=== PATIENT | female | born 1985 | race Asian ===

== ENCOUNTER 2017-02-26 17:03 | Emergency (ER) | payer OTHER ==
[2017-02-26 17:07] VITALS: TEMP 97.7
[2017-02-26 17:37] LABS: ADD DIFF? YES; ADD MORPH? NO; ADD SCAN? NO; ATYPICAL LYMPHOCYTE FLAG 20 (0-99); FRAGMENT RBC FLAG 0 (0-99); HEMATOCRIT 44.1 % (38.0-47.0); HEMOGLOBIN 15.1 g/dL (12.6-16.3); LEFT SHIFT FLG 30 (0-99); LIPEMIA HEMOLYSIS FLAG 90 (0-99); MEAN CELL HEMOGLOBIN 31.1 pg (27.9-34.1); MEAN CELL HEMOGLOBIN CONCENTR. 34.2 g/dL (32.4-36.7); MEAN CELL VOLUME 90.9 fL (81.5-99.8); MEAN PLATELET VOLUME 8.9 fL (8.7-11.7); PLATELET CLUMPS FLAG 30 (0-99); PLATELET COUNT 512 10^3/uL (150-400); RED BLOOD CELL COUNT 4.85 10^6/uL (4.18-5.33); RED CELL DISTRIBUTION WIDTH 12.4 % (11.5-15.2)
[2017-02-26] MEDS ORDERED: FAMOTIDINE 20 MG/NACL 50 ML IV ONE (17:41)
[2017-02-26] MEDS ORDERED: HYDROmorphONE/DILAUDID 1 MG/ML SYR IVP ONE ×2 (17:41→18:52)
[2017-02-26] MEDS ORDERED: NS 1,000 ML IV ONE ×2 (17:41)
[2017-02-26] MEDS ORDERED: ONDANSETRON 4 MG/2 ML VIAL IVP ONE ×2 (17:41→18:52)
--- NOTE | 2017-02-26 17:46 | EDPHY ---
H & P Time Seen by Provider: 02/26/17 17:25 HPI/ROS: HPI Vomiting blood. 31-year-old female by private vehicle with her mother. This patient has a recent history of mononucleosis. This was diagnosed a week and half ago. She reports that this morning she woke up feeling nauseous. She then had several episodes of nonbilious, nonbloody vomiting. Prior to arrival she states she was vomiting up brownish liquid with blood streaks in it. She also reports having watery diarrhea and reports having some blood in her diarrhea prior to arrival as well. No ill contacts. Denies any change in diet. She is not on any prescription medications. She does not take NSAIDs on a regular basis. No history of peptic ulcer disease. She describes having a crampy abdominal discomfort mid abdomen. ROS: Constitutional: No fever, no chills. No weakness. Eyes: No discharge. No changes in vision. ENT: No sore throat. No nasal congestion or rhinorrhea. Respiratory: No cough. No shortness of breath. Cardiac: No chest pain, no palpitations. Gastrointestinal: As above. Genitourinary: No hematuria. No dysuria or increased frequency with urination. As above. Musculoskeletal: No back pain. No neck pain. No myalgias or arthralgias. Skin: No rashes. Neurological: No headache. No focal weakness or altered sensation. Past medical history: As above. Otherwise she denies any significant past medical history. Social history: Here with her mother. Nonsmoker. No alcohol. Physical Exam: General Appearance: Alert, she appears uncomfortable. This patient is responding to questions appropriately and in full sentences. This patient appears well-hydrated and well-nourished. Eyes: Pupils equal and round no pallor or injection. No lid edema, erythema or injection. ENT, Mouth: Mucous membranes are moist. The pharyngeal tissues are unremarkable. No edema or swelling. No asymmetry suggestive of abscess. No erythema or exudates. Respiratory: There are no retractions, lungs are clear to auscultation with good air movement bilaterally. Cardiovascular: Regular rate and rhythm. No murmur. Gastrointestinal: Abdomen is soft with mild and vague mid abdominal tenderness on palpation, no masses, bowel sounds normal. No focal tenderness at McBurney' s point. No Jonas sign. Neurological: Motor sensory function is grossly intact. Cranial nerves are normal. Gait is normal. Skin: Warm and dry, no rashes. Musculoskeletal: Neck is supple and nontender. Extremities are symmetrical. All joints range without pain or impingement. Psychiatric: No agitation. No depression. Database: EKG: Imaging: Upright abdominal x-ray series: No free air. No obstructive pattern. Otherwise normal study. Interpreted by me. Procedures: Emergency department course: She vomited once in the emergency department. Was able to look at this. Blood- streaked vomits mixed with saliva brown material. No coffee grounds. IV was placed. She was placed on a monitor. She was started on IV normal saline with 2 L to be given over the next 1-2 hours. She was initially given 4 mg of IV Zofran, 0.5 mg of IV hydromorphone, 20 mg of IV Pepcid and 40 mg of IV Protonix. 6:50 p.m., patient re-evaluated. She states that she is feeling better at this time. She feels the urge to defecate. She will provide us with a stool sample. Stool studies have been ordered. She states that she still feels mildly nauseous and has a small amount of abdominal discomfort but overall feels much better. Repeat abdominal exam, she is soft, nontender nondistended. She was given an additional 0.25 mg of IV hydromorphone and another 4 mg of IV Zofran. Blood work reviewed. She is acidotic. Likely secondary to loss of bicarb from diarrhea. Metabolic panel will be repeated after her 2 L of IV normal saline. 8:45 p.m., patient re-evaluated. She has been taking oral fluids without issue. She has not had any further vomiting or diarrhea in the emergency department. Repeat abdominal exam she is soft, nontender nondistended. Results of her blood work discussed with her. Repeat basic metabolic panel shows resolving acidosis. Stool studies have been sent. She feels comfortable going home with her boyfriend and I feel she is safe for discharge. She will follow up with her primary care physician at [facility] in the next 1-2 days for re-evaluation. Return to emergency department precautions were thoroughly reviewed with her. All of her questions were answered. She was discharged in good condition. She will be prescribed Zofran for nausea. I also will send her home with a take-home pack of Vicodin for abdominal cramping and her diarrhea. Differential Diagnosis: The differential diagnosis on this patient includes but is not limited to Cathy Bernabe tear, E. coli [id number], food borne illness, gastroenteritis, peptic ulcer disease. This represents a partial list of diagnoses considered. These considerations are based on history, physical exam, past history, reassessment and diagnostic testing. Smoking Status: Never smoked Constitutional: Initial Vital Signs Temperature (C) 36.5 C 02/26/17 17:03 Heart Rate 95 02/26/17 17:03 Respiratory Rate 20 02/26/17 17:03 Blood Pressure 102/62 02/26/17 17:03 O2 Sat (%) 97 02/26/17 17:03 O2 Delivery Mode Room Air Allergies/Adverse Reactions: shellfish Allergy (Uncoded 02/26/17 17:07) Home Medications: Medication Instructions Recorded Norgestimate-Ethinyl Estradiol 1 each PO 02/26/17 [Sprintec] Ondansetron Odt [Zofran Odt 4 mg 4 mg PO Q4PRN PRN #10 tab 02/26/17 (*)] Steroid 02/26/17 Zpack 02/26/17 Medical Decision Making - Data Points Laboratory Results: Laboratory Results 02/26/17 17:25 02/26/17 19:50 Microbiology Results: MICROBIOLOGY 02/26/17 19:00 Stool Gastrointestinal Tract Panel (PCR) - Final Norovirus Gi/Gii Medications Given: Discontinued Medications Hydrocodone Bitart/Acetaminophen ([place] 5/325mg Prepack#6) 1 btl TAKEHOME EDNOW ONE Stop: 02/26/17 20:52 Last Admin: 02/26/17 21:02 Dose: 1 btl Hydromorphone HCl (Dilaudid) 0.5 mg IVP EDNOW ONE Stop: 02/26/17 17:42 Last Admin: 02/26/17 17:54 Dose: 0.5 mg Hydromorphone HCl (Dilaudid) 0.25 mg IVP EDNOW ONE Stop: 02/26/17 18:53 Last Admin: 02/26/17 19:04 Dose: 0.25 mg Sodium Chloride (Ns) 1,000 mls @ 0 mls/hr IV ONCE ONE; Wide Open PRN Reason: Protocol Stop: 02/26/17 17:42 Last Admin: 02/26/17 17:44 Dose: 1,000 mls Sodium Chloride (Ns) 1,000 mls @ 0 mls/hr IV ONCE ONE; Wide Open PRN Reason: Protocol Stop: 02/26/17 17:42 Last Admin: 02/26/17 18:31 Dose: 1,000 mls Famotidine/Sodium Chloride (Pepcid 20 Mg (Premix)) 50 mls @ 200 mls/hr IV EDNOW ONE Stop: 02/26/17 17:55 Last Admin: 02/26/17 17:54 Dose: 50 mls Ondansetron HCl (Zofran) 4 mg IVP EDNOW ONE Stop: 02/26/17 17:42 Last Admin: 02/26/17 17:54 Dose: 4 mg Ondansetron HCl (Zofran) 4 mg IVP EDNOW ONE Stop: 02/26/17 18:53 Last Admin: 02/26/17 19:04 Dose: 4 mg Departure - Departure Disposition: Home, Routine, Self-Care Clinical Impression: Vomiting and diarrhea, Leukocytosis, Dehydration Condition: Good Instructions: Hydrocodone/Acetaminophen (By mouth), Gastroenteritis (ED) Additional Instructions: Read and follow provided instructions. Follow-up with your primary care physician in 1-2 days for re-evaluation as discussed. Your stool study should be available at that time. Further management will be based on the results of the studies. Take medication as prescribed for nausea. [place]/Percocet dosin-2 every 4-6 [address] for [address] not drive on this medication. Return to the emergency department for worsening abdominal pain, rectal bleeding , vomiting and inability to keep fluids down despite medications, fever or other serious concerns. Referrals: Tyra Shelton MD [Primary Care Provider] - As per Instructions Prescriptions: Ondansetron Odt [Zofran Odt 4 mg (*)] 4 mg PO Q4PRN PRN #10 tab PRN Reason: For Nausea & Vomiting
[2017-02-26 18:03] LABS: PLATELET ESTIMATE INCREASED (ADEQ); POLYCHROMASIA 1+
[2017-02-26 18:08] LABS: ALANINE AMINOTRANSFERASE 40 IU/L (9-52); ALBUMIN 4.5 g/dL (3.5-5.0); ALKALINE PHOSPHATASE 56 IU/L (38-126); ANION GAP 19 mEq/L (8-16); ASPARTATE AMINOTRANSFERASE 44 IU/L (14-46); BILIRUBIN,TOTAL 1.1 mg/dL (0.1-1.4); BILIRUBIN-CONJUGATED 0.6 mg/dL (0.0-0.5); BILIRUBIN-UNCONJUGATED 0.5 mg/dL (0.0-1.1); CALCIUM 9.9 mg/dL (8.5-10.4); CARBON DIOXIDE 16 mEq/l (22-31); CHLORIDE 105 mEq/L (97-110); CREATININE 0.9 mg/dL (0.6-1.0); GLOMERULAR FILTRATION RATE > 60; GLUCOSE 119 mg/dL (70-100); POTASSIUM 4.8 mEq/L (3.5-5.2); SODIUM 140 mEq/L (134-144); SPECIMEN HEMOLYSIS 124; TOTAL PROTEIN 8.3 g/dL (6.3-8.2)
[2017-02-26 20:14] LABS: ANION GAP 9 mEq/L (8-16); CALCIUM 7.6 mg/dL (8.5-10.4); CARBON DIOXIDE 18 mEq/l (22-31); CHLORIDE 112 mEq/L (97-110); CREATININE 0.7 mg/dL (0.6-1.0); GLOMERULAR FILTRATION RATE > 60; GLUCOSE 82 mg/dL (70-100); POTASSIUM 4.5 mEq/L (3.5-5.2); SODIUM 139 mEq/L (134-144)
[2017-02-26] MEDS ORDERED: HYDROCOD/APAP 5/325 PREPACK#6 BTL TAKEHOME ONE (20:51)
[2017-02-26 21:11] VITALS: BP 102/70; PULSE 89; RESP 16; O2SAT 97
== END 2017-02-26 21:10 | disposition home or self-care (01) ==
DX: R19.7 Diarrhea, unspecified (principal); E86.0 Dehydration; R11.10 Vomiting, unspecified; D72.829 Elevated white blood cell count, unspecified
CPT/HCPCS: 96374; J1170; J2405